=== PATIENT | female | born 1940 | race Caucasian/White ===

== ENCOUNTER 2016-12-26 11:34 | Emergency (ER) | payer MEDICARE, OTHER ==
[2016-12-26 12:02] VITALS: TEMP 99
--- NOTE | 2016-12-26 12:13 | ED.PDOC ---
History of Present Illness - General Chief Complaint: Head Injury Stated Complaint: head injury Time Seen by Provider: 12/26/16 12:00 Source: patient, family Exam Limitations: no limitations - History of Present Illness Initial Comments: Patient presents after tripping on a rug and striking her head on a table on the way down. Her son says she was unresponsive for several seconds. She complains of forehead pain. No N/V nor paresthesias. No hearing nor vision changes. No other complaints. Timing/Duration: 1-3 hours Severity: mild Improving Factors: nothing Worsening Factors: nothing Associated Symptoms: denies symptoms Allergies/Adverse Reactions: Allergies NO KNOWN ALLERGY Allergy (Verified 12/26/16 12:39) Review of Systems - Review of Systems Constitutional: States: no symptoms reported EENTM: States: no symptoms reported Respiratory: States: no symptoms reported Cardiology: States: no symptoms reported Gastrointestinal/Abdominal: States: no symptoms reported Genitourinary: States: no symptoms reported Musculoskeletal: States: no symptoms reported Skin: States: no symptoms reported Neurological: States: see HPI Endocrine: States: no symptoms reported Hematologic/Lymphatic: States: no symptoms reported Past Medical History (General) - Patient Medical History Hx Seizures: No Hx of COPD: No Hx Hypertension: Yes Hx Thyroid Disease: No Hx Diabetes: No Hx Gastroesophageal Reflux: No Surgical History: no surgical history Family Medical History - Family History Mother Family History: No Known Physical Exam - Physical Exam General Appearance: Alert Eye Exam: bilateral normal Ears, Nose, Throat: normal ENT inspection Neck: non-tender, full range of motion, supple Respiratory: lungs clear Cardiovascular/Chest: regular rate, rhythm Gastrointestinal/Abdominal: normal bowel sounds, non tender, soft Back Exam: normal inspection Extremity: normal range of motion, non-tender, normal inspection 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 Departure - Departure Clinical Impression: Contusion of forehead Disposition: Discharge to Home or Self Care Condition: Good Departure Forms: ED Discharge - Pt. Copy, Patient Portal Self Enrollment Diet: resume usual diet Activity: increase activity as tolerated Additional Instructions: Tylenol only for pain control. May use ice to bump as needed. Return to ER or clinic for change in behavior, nausea or vomiting, weakness, or numbness in arms or legs.
--- NOTE | 2016-12-26 12:40 | CT ---
EXAM DESCRIPTION: Head CLINICAL HISTORY: fall onto forehead, LOC COMPARISON: None available TECHNIQUE: Non contrast cranial CT FINDINGS: The exam reveals no evidence of intracranial hemorrhage. Portions of paranasal sinuses and orbits imaged are normal. The mastoid sinus air cells are clear. The ventricles are within range of normal. 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 A frontal scalp hematomas observed. No mass lesions or mass effect are observed. IMPRESSION: The exam reveals a right frontal scalp hematoma. No acute intracranial abnormality is seen. Electronically signed by: Tushar Higgins MD 12/26/2016 12:39 PM CDT
[2016-12-26 19:36] VITALS: BP 144/90; O2SAT 99
== END 2016-12-26 13:20 | disposition home or self-care (01) ==
LOC: ER 11:34
DX: S00.83XA Contusion of other part of head, initial encounter (principal); I10 Essential (primary) hypertension; W01.190A Fall on same level from slipping, tripping and stumbling with subsequent striking against furniture, initial encounter

== ENCOUNTER 2020-08-09 16:29 | Observation (INO) | payer MEDICARE, OTHER ==
--- NOTE | 2020-08-09 16:47 | ED.PDOC ---
History of Present Illness - General Chief Complaint: Respiratory Problem Time Seen by Provider: 08/09/20 16:36 Source: patient, RN notes reviewed, Vital Signs reviewed, EMS notes reviewed, [facility] records, old records Exam Limitations: no limitations - History of Present Illness Initial Comments: 79 yo pleasantly demented F comes in from [facility] after she tested positive for COVID. Denies any chest pain, shortness of breath, n/v/d. no headaches, denies body aches. Saturating 98% on RA. Allergies/Adverse Reactions: Allergies NO KNOWN ALLERGY Allergy (Verified 08/09/20 17:03) Home Medications: Ambulatory Orders Lisinopril 20 mg PO DAILY #30 tab 06/23/20 Review of Systems - Review of Systems Constitutional: Denies: chills, diaphoresis, fever, malaise EENTM: Denies: blurred vision, throat pain, throat swelling, mouth pain, mouth swelling Respiratory: Denies: cough, short of breath, wheezing Cardiology: Denies: chest pain, edema, palpitations, syncope Gastrointestinal/Abdominal: Denies: abdominal pain, diarrhea, nausea, vomiting Genitourinary: Denies: discharge, frequency, hematuria Musculoskeletal: Denies: back pain, joint pain, joint swelling, muscle pain, muscle stiffness Skin: Denies: dryness, rash Neurological: Denies: headache, numbness, tingling, tremors, weakness Endocrine: Denies: increased hunger, increased thirst, increased urine, unexplained weight gain, unexplained weight loss Hematologic/Lymphatic: Denies: blood clots, easy bleeding, easy bruising Past Medical History (General) - Patient Medical History Hx Seizures: No Hx of COPD: No Hx Hypertension: Yes Hx Thyroid Disease: No Hx Diabetes: No Hx Gastroesophageal Reflux: No - Vaccination History Hx Tetanus, Diphtheria Vaccination: No - unknown Hx Influenza Vaccination: No - unknown Hx Pneumococcal Vaccination: No - unknown - Social History Hx Tobacco Use: No Hx Alcohol Use: No Hx Substance Use: No Hx Substance Use Treatment: No Hx Depression: No Family Medical History - Family History Mother Family History: No Known Physical Exam - Physical Exam General Appearance: Alert, Comfortable, No apparent distress, Well Developed, Well Groomed, Well Hydrated, Well Nourished Eye Exam: bilateral normal Ears, Nose, Throat: hearing grossly normal, normal ENT inspection, normal pharynx Neck: non-tender, full range of motion, supple, normal inspection, carotid bruit Respiratory: chest non-tender, lungs clear, normal breath sounds, no respiratory distress, no accessory muscle use Cardiovascular/Chest: normal peripheral pulses, regular rate, rhythm, no edema, no gallop, no JVD, no murmur Peripheral Pulses: radial,right: 2+, radial,left: 2+ Gastrointestinal/Abdominal: normal bowel sounds, non tender, soft, no organomegaly, no pulsatile mass Rectal Exam: deferred Back Exam: normal inspection, no CVA tenderness, no vertebral tenderness Extremity: normal range of motion, non-tender, normal inspection, no pedal edema, no calf tenderness, normal capillary refill 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 The data reviewed when caring for this patient included: nurse notes, prior records, etc. The history and assessments from nurses notes were reviewed and considered, and the patient's home medication list was also reviewed and considered. My assessment and the results of testing completed here in the ED were discussed with the patient/family. Patient was given 10 mg geodon per hospitalist request for . patient given 40 meq of KCL for hypokalemia. 08/09/20 20:03 - Results/Orders Results/Orders: 08/09/20 17:09 Isolation:Airborne ONCE Telemetry STAT 08/09/20 17:15 Pulse Ox, Continuous Monitoring STAT 08/09/20 17:47 D-DIMER,QUANTITATIVE Stat PARTIAL THROMBOPLASTIN TIME Stat 08/09/20 18:00 RESPIRATORY PANEL 2 Stat 08/10/20 17:15 Pulse Ox, Continuous Monitoring STAT 08/11/20 17:15 Pulse Ox, Continuous Monitoring STAT Laboratory Results WBC 3.5 K/mm3 (4.8-10.8) L 08/09/20 17:47 RBC 3.96 M/mm3 (4.20-5.40) L 08/09/20 17:47 Hgb 11.6 gm/dL (12.0-16.0) L 08/09/20 17:47 Hct 34.2 % (36.0-47.0) L 08/09/20 17:47 MCV 86.3 fl (81.0-99.0) 08/09/20 17:47 MCH 29.4 pg (27.0-31.0) 08/09/20 17:47 MCHC 34.0 g/dL (33.0-37.0) 08/09/20 17:47 RDW 15.9 % (11.5-14.5) H 08/09/20 17:47 Plt Count 181 K/mm3 (130-400) 08/09/20 17:47 MPV 8.4 fl (7.40-10.4) 08/09/20 17:47 Absolute Neuts (auto) 1.70 K/uL (1.8-6.8) L 08/09/20 17:47 Absolute Lymphs (auto) 1.40 K/uL (1.0-3.4) 08/09/20 17:47 Absolute Monos (auto) 0.30 K/uL (0.2-0.8) 08/09/20 17:47 Absolute Eos (auto) 0.10 K/uL (0.0-0.4) 08/09/20 17:47 Absolute Basos (auto) 0.00 K/uL (0.0-0.1) 08/09/20 17:47 Neutrophils % 48.4 % (42.0-78.0) 08/09/20 17:47 Lymphocytes % 39.8 % (20.0-50.0) 08/09/20 17:47 Monocytes % 9.3 % (2.0-9.0) H 08/09/20 17:47 Eosinophils % 1.7 % (1.0-5.0) 08/09/20 17:47 Basophils % 0.8 % (0.0-2.0) 08/09/20 17:47 PTT (SP) 28.2 SECONDS (21.8-31.6) 08/09/20 17:47 Sodium 138 mmol/L (135-145) 08/09/20 17:35 Potassium 3.0 mmol/L (3.6-5.0) L 08/09/20 17:35 Chloride 100 mmol/L (101-111) L 08/09/20 17:35 Carbon Dioxide 28 mmol/L (21-31) 08/09/20 17:35 Anion Gap 13.0 (12-18) 08/09/20 17:35 BUN 18 mg/dL (7-18) 08/09/20 17:35 Creatinine 0.66 mg/dL (0.6-1.3) 08/09/20 17:35 BUN/Creatinine Ratio 27.3 (10-20) H 08/09/20 17:35 Random Glucose 96 mg/dL (70-105) 08/09/20 17:35 Serum Osmolality 277.4 mOsm/L (275-295) 08/09/20 17:35 Calcium 8.5 mg/dL (8.4-10.2) 08/09/20 17:35 Magnesium 2.0 mg/dL (1.8-2.5) 08/09/20 17:35 Total Bilirubin 0.5 mg/dL (0.2-1.0) 08/09/20 17:35 AST 17 IU/L (10-42) 08/09/20 17:35 ALT 11 IU/L (10-60) 08/09/20 17:35 Alkaline Phosphatase 77 IU/L (42-121) 08/09/20 17:35 LD Total 132 IU/L (91-180) 08/09/20 17:35 Creatine Kinase 50 IU/L (26-140) 08/09/20 17:35 Troponin I 0.02 ng/mL (0.01-0.05) 08/09/20 17:35 C-Reactive Protein < 0.8 mg/dL (0-1.0) 08/09/20 17:35 Serum Total Protein 7.0 gm/dL (6.4-8.2) 08/09/20 17:35 Albumin 4.0 g/dl (3.2-5.5) 08/09/20 17:35 Globulin 3.0 gm/dL (2.3-3.5) 08/09/20 17:35 Albumin/Globulin Ratio 1.3 (1.1-1.9) 08/09/20 17:35 - EKG/XRAY/CT XRAY: chest - cardiomeagly, without evidence of chf. Departure - Departure Clinical Impression: COVID-19, Hypokalemia Condition: Fair Home Medications: Ambulatory Orders Lisinopril 20 mg PO DAILY #30 tab 06/23/20 Decision To Admit - Decistion To Admit Decision to Admit Reason: Medical Nature Decision to Admit Date: 08/09/20 Decision to Admit Time: 17:31
--- NOTE | 2020-08-09 17:35 | RAD ---
EXAM DESCRIPTION: Chest,1 View CLINICAL HISTORY: 79 years Female, sob COMPARISON: None. TECHNIQUE: AP portable chest. FINDINGS: Heart size is large with normal pulmonary vascularity. No consolidating infiltrate. Minimal linear scarring in the lingula. No pulmonary mass or worrisome nodule. No pneumothorax or pleural effusion. Advanced arthritic changes of the shoulders. Bones are otherwise unremarkable. IMPRESSION: Large heart without congestive failure. Electronically signed by: Dm Jalloh MD 08/09/2020 5:33 PM CDT
[2020-08-09] MEDS ORDERED: HALOPERIDOL TAB 1 MG TAB PO ONE (17:53)
[2020-08-09] MEDS ORDERED: HALOPERIDOL TAB 5MG ONE ×2 (17:59→20:38)
[2020-08-09] MEDS ORDERED: POTASSIUM CHLORIDE 20 MEQ TAB PO ONE (19:07)
--- NOTE | 2020-08-09 19:22 | HP ---
SUPERVISING PHYSICIAN: Ruben Sanders MD CHIEF COMPLAINT: Shortness of breath. HISTORY OF PRESENT ILLNESS: Ms. Núñez is a 79 year-old female patient with severe dementia, although she is pleasantly demented and from [facility]. She was tested for Covid-19 because she was in close proximity with another patient that was from [facility] and had tested positive. Initially on admission to the Emergency Room, she was showing saturations of 98% on room air. Her history is limited to the charts and past medical records. She is unable to provide any past medical history or any history at all. Vital signs are showing stable. Labs were completed. White count 3,500 without a left shift. Coagulation studies did show a D-dimer of 1480. Chemistries showed potassium 3.1. Otherwise, electrolytes within normal limits. C-reactive protein was -0.8, LDH 132. Chest x-ray, 2-view, per radiology interpretation showed enlarged heart without congestive failure. Initial vital signs in the Emergency Room she was showing temperature of 98.3, pulse 78, she was showing hypertensive, oxygen saturation 99% on room air. She was quite aggressive in the Emergency Room and required some Haldol and Geodon and did settle down. Given that she is from [facility] who has no means of taking care of a Covid patient, it was requested she be placed in observation waiting for placement for treatment for underlying Covid. She was in stable condition at time of admission. PAST MEDICAL HISTORY: 1. Hypertension. 2. Alzheimer's disease with advanced dementia. PAST SURGICAL HISTORY: 1. Hysterectomy. 2. Appendectomy. CURRENT MEDICATIONS: Awaiting updated list of medications per medical records. ALLERGIES: No known drug allergies. CODE STATUS: Do Not Resuscitate. FAMILY HISTORY: Unavailable. SOCIAL HISTORY: She has no history of drinking alcohol or using tobacco products. REVIEW OF SYSTEMS: Unobtainable due to patient's inability to communicate due to her dementia and having been given Geodon. PHYSICAL EXAMINATION: VITAL SIGNS: Temperature 98.3, pulse 76, blood pressure 171/96, oxygen saturation 99% on room air. GENERAL: The patient looks to be well hydrated and well-nourished, she does not look to be in any distress. She is alert. HEENT: Tympanic membranes are clear bilaterally. Oropharynx is pink, moist, without any lesions. NECK: Supple, nontender, full range of motion, no jugular venous distention. CHEST: Lung sounds were clear throughout. CARDIOVASCULAR: Regular rate and rhythm without appreciable murmurs, rubs, or gallops. ABDOMEN: Soft, non_tender, positive bowel sounds. EXTREMITIES: Without cyanosis, clubbing, or edema. NEUROLOGIC: Cranial nerves II through XII are grossly intact as tested. She is alert to herself, where she lives, month and year. SKIN: Warm, pink and dry. LABORATORY: White count 3.5, hemoglobin 11.6, hematocrit 34.2, platelet count 185,000, differential shows to be without a left shift. Coagulation studies showed D-dimer of 1480. PTT was normal. Chemistries showed sodium 138, potassium a little low at 3.0. Otherwise, electrolytes within normal limits. BUN 18, creatinine 0.66. Liver functions all was negative. Magnesium normal at 2.0. Troponin 0.002. C-reactive protein less than 0.8. Urinalysis pending. MICROBIOLOGY: Respiratory panel did show positive for Covid-19 but negative for all bacterial and viral targets including influenza. RADIOLOGY: Chest x-ray per radiology interpretation 2-view chest: Enlarged heart without congestive failure. ASSESSMENT: 1. Covid-19 infection with early pneumonitis. 2. Alzheimer's disease with severe dementia. 3. Hypertension. 4. Mild hypokalemia. PLAN: Ms. Núñez is going to be placed in observation initially. They did replace her potassium in the Emergency Room. She had some severe sundowner's prior to coming from the Emergency Room to the Floor. She pulled all her IVs out, refused to put back in, pulled her telemetry monitors off. Once those were off and out of the way, she was very content. However, at this point, given that she is not symptomatic we will go ahead and start her on oral medications as we can for Covid including azithromycin and Decadron, will hold off on Remdesivir due to the fact we have no IV access. I will go ahead and order, since the D-dimer was elevated, Lovenox. She will be on Align and Protonix. Once her medications have been updated and reviewed we will resume to as appropriate to care. I would anticipate her length of stay to be 1 to 2 days, again, awaiting placement, and close monitoring as the patient cannot return back to [facility] due to the fact they are not able to care for Covid patients. I think the biggest issue with her at this point is going to be sundowner's because she is wanting to try and get out of bed and wander the hallways which poses a abdon for fall certainly. I am not sure who her family doctor is at this point. She is a DNR. Will continue to monitor and treat as needed until we can transition her to outpatient management. #[id number] [facility]
[2020-08-09] MEDS: ZIPRASIDONE 20 MG CAP PO SCH (20:28)
[2020-08-09] MEDS ORDERED: ZIPRASIDONE 20 MG CAP ONE (20:37)
[2020-08-09] MEDS ORDERED: ACETAMINOPHEN 325 MG TAB PO PRN (22:03)
[2020-08-09] MEDS ORDERED: SODIUM CHLORIDE 0.9% (FLUSH) 10 ML SYG IV PRN (22:03)
[2020-08-09] MEDS ORDERED: DEXAMETHASONE INJ 10 MG/ML VIAL PO ONE (22:06)
[2020-08-09] MEDS ORDERED: ALBUTEROL INHALER 64 PUFF/8GM INH PRN (22:20)
[2020-08-09] MEDS ORDERED: IV SET AND CAP CHANGE INJ INJ SCH (22:30)
[2020-08-09] MEDS ORDERED: AZITHROMYCIN 250 MG TAB PO SCH (22:30)
[2020-08-09] MEDS ORDERED: DEXAMETHASONE 4 MG TAB ONE (22:38)
[2020-08-09] MEDS ORDERED: DEXAMETHASONE 1 MG TAB ONE (22:38)
[2020-08-09] MEDS ORDERED: DEXAMETHASONE 4 MG TAB PO ONE (22:54)
[2020-08-09] MEDS ORDERED: DEXAMETHASONE 4 MG TAB PO SCH (23:00)
[2020-08-10] MEDS ORDERED: OMEPRAZOLE CAP 20 MG CAP PO SCH (06:30)
--- NOTE | 2020-08-10 06:43 | RAD ---
CHEST, ONE VIEW XR CLINICAL HISTORY: COVID COMPARISON: 08/09/2020 TECHNIQUE: AP Chest. FINDINGS: Heart is normal in size. Normal cardiomediastinal contours. Normal pulmonary vascularity. Minimal left midlung atelectasis. Lungs and pleural spaces are otherwise clear. No pneumothorax. Mild thoracic spondylosis. Normal soft tissues. IMPRESSION: 1. No acute chest disease. Electronically signed by: Rosa Hemphill DO 08/10/2020 6:41 AM CDT
[2020-08-10] MEDS: ZIPRASIDONE 20 MG CAP PO SCH ×2 (07:56→17:26)
[2020-08-10] MEDS ORDERED: ALBUTEROL INHALER 64 PUFF/8GM INH SCH (08:00)
[2020-08-10] MEDS ORDERED: DEXAMETHASONE 4 MG TAB PO SCH (09:00)
[2020-08-10] MEDS ORDERED: MEMANTINE 10 MG TAB PO SCH (09:00)
[2020-08-10] MEDS ORDERED: DEXAMETHASONE INJ 10 MG/ML VIAL PO SCH (09:00)
[2020-08-10] MEDS ORDERED: ENOXAPARIN SODIUM 40 MG/0.4 ML SYG SUBCU SCH (09:00)
[2020-08-10] MEDS ORDERED: LISINOPRIL 10 MG TAB PO SCH (09:00)
[2020-08-10] MEDS: busPIRone HCL 5 MG TAB PO SCH ×2 (09:25→17:25)
[2020-08-10] MEDS ORDERED: POTASSIUM CHLORIDE 20 MEQ TAB PO ONE (11:26)
[2020-08-10 18:06] VITALS: BP 145/81; TEMP 98.2; O2SAT 97
[2020-08-10] MEDS ORDERED: ZIPRASIDONE 20 MG CAP PO ONE (20:02)
[2020-08-10] MEDS ORDERED: DONEPEZIL HCL 5 MG TAB PO SCH (21:00)
[2020-08-10] MEDS ORDERED: AZITHROMYCIN 250 MG TAB PO SCH (21:00)
--- NOTE | 2020-08-11 09:07 | DS ---
SUPERVISING PHYSICIAN: Ruben Sanders MD DISCHARGE DIAGNOSES: 1. Covid-19 infection with early pneumonitis. 2. Alzheimer's disease with severe dementia. 3. Hypertension. 4. Mild hypokalemia. HISTORY OF PRESENT ILLNESS: This is a 79 year-old female patient with severe dementia from [facility]. She was tested for Covid-19 and had tested positive. Initial sats in the Emergency Room were 98% on room air. There is a limited history from her past medical records. She is unable to provide any history. Vital signs were stable. Initial labs were completed. White count 3,500 without a left shift. Coagulation studies showed a D-dimer of 1480. Chemistries showed potassium 3.1. Otherwise, electrolytes were within normal limits. C-reactive protein was 0.8, LDH 132. Chest x-ray, 2-view, per radiology interpretation showed enlarged heart without congestive failure. Initial vital signs showed temperature of 98.3, pulse 78, she was slightly hypertensive and oxygen saturation 99% on room air. She was quite aggressive in the Emergency Room and required Haldol and Geodon and then she settled down. She was placed in observation in the hospital due to [facility] not having a Covid unit at this time and awaiting for placement back at the retirement. She was placed in observation for Covid-19. HOSPITAL COURSE: She was placed in observation. Her potassium was replaced in the Emergency Room. She pulled all her IVs out and refused them to be put back in. They were unable to keep her telemetry on. Due to her mild symptoms, she was put on p.o. medications that included azithromycin and Decadron. Remdesivir was held due to her not having IV access. She was also placed on Lovenox due to the elevated D-dimer as well as Align and Protonix. Her home medications were restarted. Once her telemetry was off and there were no IVs, she was quite comfortable and [facility] has now opened a Covid riddle and she will be discharged to [facility] in stable condition. LABORATORY: Followup WBC 2,400 with hemoglobin of 11.5 and hematocrit 33.6. Fibrinogen 417 with a D-dimer of 1,320. Potassium was slightly low at 3.4 but the remainder of her electrolytes were within normal limits. Her liver enzymes were within normal limits. Followup chest x-ray shows no acute chest disease. All other labs and films have been reviewed via the EMR. DISCHARGE PLAN: The patient will be discharged to [facility]. She is in fair condition. She is to resume her previous diet and increase her activity as tolerated. She is to followup with her primary care physician, Dr. Isiah Lawson, within the next 1 to 2 weeks. In addition to her routine medications, she is also to have Cefdinir for 7 days, dexamethasone for 8 days, Eliquis for 30 days and azithromycin for 4 days. She has also been given instructions for her albuterol inhaler. She should return to the hospital or followup with Dr. Lawson for any problems or complications. DISCHARGE MEDICATIONS: 1. Lisinopril. 2. Vitamin D3. 3. Omeprazole. 4. Memantine. 5. Melatonin. 6. Ibuprofen. 7. Calcium carbonate. 8. Buspirone. 9. Cefdinir. 10. Dexamethasone. 11. Eliquis. 12. Albuterol. 13. Azithromycin. #[id number] [facility]
== END 2020-08-10 18:15 ==
LOC: ER 16:29 → MS 19:21
PROVIDERS: ADMIT Nurse Practitioner Family; ATTEND Nurse Practitioner Acute Care
DX: U07.1 COVID-19 (principal); J12.89 Other viral pneumonia; G30.9 Alzheimer's disease, unspecified; F02.80 Dementia in other diseases classified elsewhere, unspecified severity, without behavioral disturbance, psychotic disturbance, mood disturbance, and anxiety; I10 Essential (primary) hypertension; E87.6 Hypokalemia; Z66 Do not resuscitate; Z79.01 Long term (current) use of anticoagulants; Z79.899 Other long term (current) drug therapy
CPT/HCPCS: 96372; Q0144; J8540 ×2; J1650; 85379 ×2; 80053 ×2; 36415 ×2; 85384; 86140 ×2; 85025 ×2; 82550; 83615 ×2; 83735 ×2; 85730 ×2; 84484; 71045 ×2; 94760; 94664 ×2; 94640; 94762; 99285; G0378; 87581; 87486; 87633; 87635

== ENCOUNTER → 2020-08-16 | Outpatient (CLI) | payer MEDICARE, MEDICAID | LOC: GT 20:28 | PROVIDERS: ATTEND Family Medicine | DX: B34.2 Coronavirus infection, unspecified (principal); R71.8 Other abnormality of red blood cells; R09.02 Hypoxemia ==

== ENCOUNTER 2020-08-17 17:10 | Emergency (ER) | payer MEDICARE, MEDICAID ==
--- NOTE | 2020-08-17 18:07 | ED.PDOC ---
History of Present Illness - General Time Seen by Provider: 08/17/20 17:22 Source: patient Exam Limitations: clinical condition - History of Present Illness Initial Comments: The patient is a 79-year-old female presented emergency room secondary to being sent up from her long-term care facility due to concern for her coronavirus. The patient is not hypoxic. She is not short of breath. She is not having fevers. No nausea vomiting or diarrhea. No chest pain. No syncope. No altered mental status from her baseline. We did see patient 1 week ago when she was first diagnosed with coronavirus. She apparently had lab work showing a D-dimer that was abnormal last night she was here for evaluation today. In fact that D-dimer has come down significantly from a week before. There is no evidence clinically of any DVT. No evidence clinically of any pulmonary embolus. Lab work otherwise was reassuring. She is oxygenating between 93 and 98% on room air. She had previously had hypotensive episodes but she is currently moderately hypertensive but asymptomatic from it. The patient has very poor memory but nothing is bothering her right now. Timing/Duration: unsure Severity: mild Improving Factors: nothing Worsening Factors: nothing Associated Symptoms: denies symptoms Allergies/Adverse Reactions: Allergies NO KNOWN ALLERGY Allergy (Verified 08/09/20 17:03) Home Medications: Ambulatory Orders Lisinopril 20 mg PO DAILY #30 tab 06/23/20 Albuterol Inhaler [Ventolin Hfa Inhaler] 2 puff INH PRN PRN inh 08/10/20 Albuterol Inhaler [Ventolin Hfa Inhaler] 2 puff INH RTQID inh 08/10/20 Apixaban [Eliquis] 2.5 mg PO BID #60 tab 08/10/20 Azithromycin Tab [Zithromax Tab] 250 mg PO QD #4 tab 08/10/20 Buspirone HCl [Buspirone Hydrochloride] 10 mg PO TID 08/10/20 Calcium Carbonate-Cholecalcife [Calcium 600+D3 600-400 mg-Unit] 1 tab PO DAILY 08/10/20 Cefdinir 300 mg PO BID #14 capsule 08/10/20 Cholecalciferol [Vitamin D3] 1,000 unit PO DAILY 08/10/20 Dexamethasone Tab [Decadron Tab] 4 mg PO DAILY #8 tab 08/10/20 Donepezil Hydrochloride [Aricept] 10 mg PO BEDTIME 08/10/20 Ibuprofen 400 mg PO Q8HR PRN 08/10/20 Melatonin [Melatonin 3 mg] 2 tab PO BEDTIME 08/10/20 Memantine [Namenda] 10 mg PO BID 08/10/20 Omeprazole [Omeprazole Dr] 20 mg PO BEDTIME 08/10/20 Review of Systems - Review of Systems Review of Systems: 08/17/20 18:07 Review of systems is as best as the patient can remember. Constitutional: States: no symptoms reported EENTM: States: no symptoms reported Respiratory: States: no symptoms reported Cardiology: States: no symptoms reported Gastrointestinal/Abdominal: States: no symptoms reported Genitourinary: States: no symptoms reported Musculoskeletal: States: no symptoms reported Skin: States: no symptoms reported Neurological: States: no symptoms reported Endocrine: States: no symptoms reported All other Systems: No Change from Baseline Past Medical History (General) - Patient Medical History Hx Seizures: No Hx of COPD: No Hx Congestive Heart Failure: No Hx Hypertension: Yes Hx Thyroid Disease: No Hx Diabetes: No Hx Gastroesophageal Reflux: No - Vaccination History Hx Tetanus, Diphtheria Vaccination: No - unknown Hx Influenza Vaccination: No - unknown Hx Pneumococcal Vaccination: No - unknown - Social History Hx Tobacco Use: No Hx Alcohol Use: No Hx Substance Use: No Hx Substance Use Treatment: No Hx Depression: No Hx Physical Abuse: No Hx Emotional Abuse: No Family Medical History - Family History Mother Family History: No Known Physical Exam - Physical Exam General Appearance: Alert, Comfortable, No apparent distress Eye Exam: bilateral normal Ears, Nose, Throat: hearing grossly normal, normal pharynx Neck: full range of motion, supple Respiratory: lungs clear, normal breath sounds, no respiratory distress, no accessory muscle use Cardiovascular/Chest: normal peripheral pulses, no edema, other - Regular rate Peripheral Pulses: radial,right: 2+, radial,left: 2+ Gastrointestinal/Abdominal: non tender, soft Rectal Exam: deferred Back Exam: no CVA tenderness, no vertebral tenderness Extremity: non-tender, no pedal edema, no calf tenderness, normal capillary refill 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 In fact the D-dimer is significantly lower than it was last week. The patient appears to be doing quite well clinically. X-ray is reassuring and the patient is not in close to hypoxic. She is already on Eliquis. The patient follow-up with her primary care doctor in the coming week. The patient will be discharged back to her long-term facility. [id number] - Results/Orders Results/Orders: I see no evidence of any significant infiltrates on chest x-ray. No pneumothorax. No widening of the mediastinum. Departure - Departure Clinical Impression: COVID-19 Disposition: Discharge to [facility] Condition: Fair Diet: regular diet Activity: increase activity as tolerated Referrals: Isiah Lawson MD [Primary Care Provider] - 1-2 Weeks Home Medications: Ambulatory Orders Lisinopril 20 mg PO DAILY #30 tab 06/23/20 Albuterol Inhaler [Ventolin Hfa Inhaler] 2 puff INH PRN PRN inh 08/10/20 Albuterol Inhaler [Ventolin Hfa Inhaler] 2 puff INH RTQID inh 08/10/20 Apixaban [Eliquis] 2.5 mg PO BID #60 tab 08/10/20 Azithromycin Tab [Zithromax Tab] 250 mg PO QD #4 tab 08/10/20 Buspirone HCl [Buspirone Hydrochloride] 10 mg PO TID 08/10/20 Calcium Carbonate-Cholecalcife [Calcium 600+D3 600-400 mg-Unit] 1 tab PO DAILY 08/10/20 Cefdinir 300 mg PO BID #14 capsule 08/10/20 Cholecalciferol [Vitamin D3] 1,000 unit PO DAILY 08/10/20 Dexamethasone Tab [Decadron Tab] 4 mg PO DAILY #8 tab 08/10/20 Donepezil Hydrochloride [Aricept] 10 mg PO BEDTIME 08/10/20 Ibuprofen 400 mg PO Q8HR PRN 08/10/20 Melatonin [Melatonin 3 mg] 2 tab PO BEDTIME 08/10/20 Memantine [Namenda] 10 mg PO BID 08/10/[address] Omeprazole [Omeprazole Dr] 20 mg PO BEDTIME 08/10/20 Additional Instructions: The patient is a 79-year-old female presented to the emergency room from long-term care facility secondary to concern over one of her coronavirus labs. In fact the D-dimer is significantly lower than it was last week. The patient appears to be doing quite well clinically. X-ray is reassuring and the patient is not in close to hypoxic. She is already on Eliquis. The patient follow-up with her primary care doctor in the coming week. The patient will be discharged back to her long-term facility.
--- NOTE | 2020-08-17 18:23 | RAD ---
XR CHEST 1 VIEW HISTORY: Covid 1 week, no hypoxia. COMPARISON: 08/10/2020 FINDINGS: The heart size is within normal limits. There is no pulmonary vascular congestion. No consolidation, pleural effusion, or pneumothorax is seen. No acute bony findings are seen. IMPRESSION: No evidence of acute cardiopulmonary disease. Electronically signed by: Ashvin Barros MD 08/17/2020 6:21 PM [employer]ARD [employer]
[2020-08-17 19:12] VITALS: BP 178/90; TEMP 97.6; O2SAT 97
== END 2020-08-17 19:17 ==
LOC: ER 17:10
DX: U07.1 COVID-19 (principal); I10 Essential (primary) hypertension; Z79.01 Long term (current) use of anticoagulants; Z79.899 Other long term (current) drug therapy

== ENCOUNTER → 2020-08-27 | Outpatient (CLI) | payer MEDICARE, MEDICAID | LOC: GT 21:31 | PROVIDERS: ATTEND Family Medicine | DX: I10 Essential (primary) hypertension (principal); E55.9 Vitamin D deficiency, unspecified; E56.9 Vitamin deficiency, unspecified ==